=== PATIENT | male | born 1945 | race Caucasian/White ===

== ENCOUNTER 2017-01-16 23:22 | Observation (INO) | payer OTHER ==
[~2017-01-16] VITALS: Ht 182.9 cm; Wt 98.0 kg
[2017-01-17 00:10] LABS: Urine Bilirubin Negative (Negative); Urine Color Yellow (Yellow); Urine Glucose Normal (Normal); Urine Ketone Negative (Negative); Urine Nitrite Negative (Negative); Urine RBC 20 /hpf (0 - 3); Urine Squamous Epithelial Cell FEW /hpf (<5); Urine Urobilinogen Normal (Negative); Urine pH 5.5 (5.0-8.0)
[2017-01-17 00:16] LABS: Urine Blood 2+ /uL (Negative)
[2017-01-17 00:19] LABS: Basophils # (auto) 0.1 uL; Basophils % (auto) 0.6 % (0.0-2.0); Eosinophils # (auto) 0.3 uL; Eosinophils % (auto) 1.9 % (0.0-7.0); Hematocrit 42.8 % (41.0-53.0); Hemoglobin 14.2 g/dL (13.5-17.5); Lymphocytes # (auto) 1.8 uL; Lymphocytes % (auto) 13.4 % (10.0-50.0); Mean Corpuscular Hemoglobin 29.5 pg (28.0-32.0); Mean Corpuscular Hgb Conc. 33.2 g/dL (32.0-36.0); Monocytes % (auto) 7.8 % (0.0-12.0); Neutrophils # (auto) 10.2 uL; Neutrophils % (auto) 76.3 % (37.0-80.0); Platelet Count (auto) 289 10^3/uL (140-450); Red Cell Distribution Width 11.9 % (11.6-16.0); SUSPECT VIEW TRANSMISSION; White Blood Cell 13.4 10^3/uL (4.4-10.8)
[2017-01-17 00:34] LABS: Albumin 3.7 g/dL (3.4-5.0); Calcium 8.9 mg/dL (8.5-10.1); Magnesium 2.4 mg/dL (1.6-2.6); Potassium 4.1 mmol/L (3.5-5.1)
[2017-01-17 00:35] LABS: INR 1.03 (0.9-1.15); Partial Thromboplastin Time 25.7 sec (22.64-33.71); Prothrombin Time 10.6 sec (9.37-12.3)
[2017-01-17 00:39] LABS: BUN/Creatinine Ratio 27.8; Bilirubin, Total 0.3 mg/dL (0.2-1.0); Total Protein 7.7 g/dL (6.4-8.2)
[2017-01-17] MEDS ORDERED: SODIUM CHLORIDE 0.9% 1,000 ML IV ONE (07:25)
[2017-01-17] MEDS ORDERED: IOHEXOL 350 MG/ML 100ML IJ ONE (10:18)
[2017-01-17 12:28] VITALS: BP 150/94
== END 2017-01-17 12:36 | disposition home or self-care (01) | DRG 310 ==
LOC: ER 23:26 → OVERFLOW 01-17 07:27 → ER 01-17 12:36
PROVIDERS: ADMIT Emergency Medicine; ATTEND Emergency Medicine
DX: I48.0 Paroxysmal atrial fibrillation (principal); Z95.1 Presence of aortocoronary bypass graft; R73.9 Hyperglycemia, unspecified; Z95.2 Presence of prosthetic heart valve; E04.2 Nontoxic multinodular goiter; K80.20 Calculus of gallbladder without cholecystitis without obstruction; I25.2 Old myocardial infarction
CPT/HCPCS: 36415; 71020; 71275; 80053; 81001; 83735; 84443; 84484; 85025; 85379; 85610; 85730; 93005; 96360; 96361; 99285; G0378; G0434; J7030; Q9967